=== PATIENT | male | born 1980 ===

== ENCOUNTER 2019-05-22 18:08 | Emergency (ER) | payer SELFPAY ==
[2019-05-22] MEDS ORDERED: Ketorolac Tromethamine 30 MG/ML VIAL ONE (19:57)
[2019-05-22] MEDS ORDERED: Ondansetron PF 4 MG/2 ML Vial ONE (19:57)
[2019-05-22] MEDS ORDERED: Metoclopramide HCl 10 MG/2 ML VIAL ONE (20:43)
== END 2019-05-22 21:34 | disposition home or self-care (01) ==
LOC: ERS 18:08
DX: B34.9 Viral infection, unspecified (principal); R11.2 Nausea with vomiting, unspecified; F43.10 Post-traumatic stress disorder, unspecified
CPT/HCPCS: 96361; 96365; 96375; J1885; J2405; J2765